=== PATIENT | male | born 1980 | race Caucasian/White ===

== ENCOUNTER 2022-10-27 09:08 | Inpatient (IN) | payer BC, SELFPAY ==
--- NOTE | ~2022-10-27 | CT_ITS ---
EXAMINATION: CT abdomen pelvis w con DATE: 10/27/2022 10:41 INDICATION: Left lower quadrant abdominal pain, testicular pain. Nausea. Diaphoresis. TECHNIQUE: Computed tomography (CT) of the abdomen and pelvis was performed with 100 CC Omnipaque 350 intravenous contrast. Automated exposure control and iterative reconstruction technique were employe d. Exam dose: 485.45 mGy-cm total exam DLP. COMPARISON: None. FINDINGS: Thin linear discoid bands in both lower lobes may be due to discoid atelectasis or scarring . No consolidation at the lung bases. No pleural or pericardial effusion. Heart size is normal. Small sliding hiatal hernia. The liver, gallbladder, bile ducts, spleen, pancreas, pancreatic duct, and adrenal glands and kidneys appear normal. Normal caliber of the abdominal aorta. No intraperitoneal or retroperitoneal or pelvic mass lesion or adenopathy or ascites. The urinary bladder is unremarkable. Mild prostate enlargement. Prostate calcifications. Normal appendix. Mild left colon diverticulosis. There is soft tissue thickening of the wall of the distal descending colon with prominent pericolic f at stranding and small focal extraluminal air collections. Approximately 9 x 15 mm intramural abscess of the distal descending colon anterior wall is suggested. No suspicious osteolytic or osteoblastic lesions. IMPRESSION: Diverticulitis of the distal descending colon with approximately 9 x 15 mm intramural ab scess and some prominent inflammatory change around the descending colon including pericolic fat soft tissue infiltration and thickening of the adjacent fascia. There are scattered small collections of focal extraluminal gas. Normal appendix Small sliding hiatal hernia Reviewed, dictated and finalized at [facility]. Reviewed, dictated and finalized at [facility]ER IMPRESSION: Diverticulitis of the distal descending colon with approximately 9 x 15 mm intramural abscess and some prominent inflammatory change around the d escending colon including pericolic fat soft tissue infiltration and thickening of the adjacent fascia. There are scattered small collections of focal extralu ean gas. Normal appendix Small sliding hiatal hernia
[2022-10-27 09:20] VITALS: BP 127/87; PULSE 92; RESP 14; TEMP 36.6; O2SAT 99
--- NOTE | 2022-10-27 09:42 | ED.ABDPAIN ---
HPI - Abdominal Pain General Chief Complaint: Abdominal Pain Stated Complaint: abd pain Time Seen by Provider: 10/27/22 09:30 History of Present Illness HPI narrative: Patient states that yesterday he started having some pain in his lower abdomen, and that today has really settled into his left lower quadrant, and with some nausea vomiting, he states that everything seemed to have started when he was having some nausea and diarrhea a day or so ago. Also endorsing some chills. No testicular pain. No pain with urination never had symptoms like this in the past. Related Data Home Medications Medication Instructions Recorded Confirmed No Home Medications 10/27/22 10/27/22 Allergies Allergy/AdvReac Type Severity Reaction Status Date / Time No Known Allergies Allergy Verified 10/27/22 10:32 Review of Systems Review of Systems: CONST: Chills HEENT: No sore throat C/V: No chest pain RESP: No cough GI: Reports abdominal pain, nausea, vomiting[, diarrhea] : No dysuria. M/S: No joint pain. SKIN: No rash. NEURO: [No headache or focal numbness or weakness] PSYCH: [No depression] [facility] Past Medical History Medical History (Updated 10/27/22 @ 18:36 by Magui Cantrell MD) No significant active problems Surgical History Surgical History (Updated 10/27/22 @ 14:44 by ZAYDA Nunez) No pertinent past surgical history Family History Family History Sibling Diverticulitis Other Diverticulitis Social History Social History Smoking status: Never smoker Alcohol intake: current Drinks per week: 2 Substance use: never Lack of Transportation: No Lack of Food: Never True Current Housing: I Have Housing Concerned About Future Housing: No Difficulty Paying Gas/Electric Bills: No Difficulty Paying for Meds: No Currently Unemployed: No Education: Master's Degree or Higher Difficulty w/ Childcare or Family Care: No Living arrangements: with family Gender identity (if verbalized by the patient): Male Spiritual care concerns: No Exam Narrative: EXAMINATION OF ORGAN SYSTEMS/BODY AREAS: Constitutional: Vital signs per nursing GENERAL:[No acute distress, non-toxic appearing.] HEAD: Normal with no signs of head trauma. EYES: EOMI, conjunctiva normal ENT: Hearing grossly intact LUNGS: Nonlabored breathing. HEART: [Regular rate and rhythm] ABD: [Soft], [tender to palpation] left lower quadrant : No testicular swelling or tenderness EXT: Normal range of motion SKIN: [No rashes or lesions.] NEURO: [Alert and oriented x 3. No gross focal sensory or strength deficits.] PSYCH: Normal affect Course Vital Signs Vital signs: Vital Signs Temperature 97.9 F 10/27/22 09:20 Pulse Rate 92 10/27/22 09:20 Respiratory Rate 14 10/27/22 09:20 Blood Pressure 127/87 10/27/22 09:20 Pulse Oximetry 99 10/27/22 09:20 Oxygen Delivery Room Air 10/27/22 09:20 Temperature 97.7 F 10/27/22 15:19 Pulse Rate 86 10/27/22 15:19 Respiratory Rate 18 10/27/22 15:19 Blood Pressure 123/82 10/27/22 15:19 Pulse Oximetry 98 10/27/22 15:19 Oxygen Delivery Room Air 10/27/22 09:20 MDM - Abdominal Pain MDM Narrative Medical decision making narrative: Electronic medical record was reviewed. Patient presented to the ED with complaint of [abdominal pain and vomiting]. Vitals [were within acceptable limits]. Physical exam revealed [tenderness to palpation in left lower quadrant]. Based on the patient's history and physical exam, my differential includes but is not limited to [gastritis, gastroenteritis, diverticulitis, kidney stone or UTI]. [IV access was established by nursing staff. Patient was given morphine, Zofran, fluids]. CBC, BMP, lipase, LFTs, bilirubin and alk phos were obtained. Labs were pertinent for elevated white count. [Decision was made to obt
[2022-10-27 09:58] LABS: Appearance Urine Clear (Clear); Bilirubin Urine Negative (Negative); Blood Urine Trace-intact (Negative); Color Urine Yellow (Yellow); Glucose Urine UA Negative (Negative); Ketones Urine Negative (Negative); Leukocyte Esterase Ur Negative LEU/UL (Negative); Nitrate Urine Negative (Negative); Protein Urine Trace mg/dL (Negative); Urobilinogen Urine 0.2 mg/dL (<2.0); pH Urine 5.5 (5.0-9.0)
[2022-10-27 10:00] LABS: Basophils Percent Auto 0.3 % (0.2-1.2); Eosinophils Absolute Auto 0.2 K/mm3 (0-0.3); Eosinophils Percent Auto 1.7 % (0-4.4); Hemoglobin 15.2 g/dL (14.0-18.0); Immature Granulocyte Absolute 0.08 K/mm3 (0.00-0.031); Immature Granulocyte Percent A 0.7 % (0-0.5); Lymphocytes Absolute Auto 2.33 K/mm3 (0.9-3.2); Lymphocytes Percent Auto 19.7 % (18.3-44.2); Mean Corpuscular HGB Conc 33.8 g/dl (32-36); Mean Corpuscular Hemoglobin 29.7 pg (26-34); Mean Corpuscular Volume 88.1 fl (80-100); Mean Platelet Volume 8.8 fl (7.4-10.4); Monocytes Absolute Auto 0.8 K/mm3 (0.1-0.6); Monocytes Percent Auto 6.6 % (2.6-8.5); Neutrophils Absolute Auto 8.4 K/mm3 (1.3-6.7); Platelet Count Result 246 k/mm3 (150-375); Red Blood Count 5.11 M/mm3 (4.6-6.20); Red Cell Distribution Width 13.3 % (11.5-14.5); White Blood Count 11.8 K/mm3 (4.5-10.0)
[2022-10-27 10:02] LABS: Mucus Urine Few /lpf; Squamous Epithelial Cell Urine Rare /hpf (Few); WBC Urine 0-3 /hpf
[2022-10-27 10:03] LABS: Add Urine Microscopic? YES
[2022-10-27] MEDS: MORPHINE SULFATE (*CRX) 4 MG/ML INJ IV PUSH ×2 (10:06→12:21)
[2022-10-27] MEDS: ONDANSETRON INJ 4 MG/2 ML VIAL IV PUSH ×2 (10:06→12:21)
[2022-10-27 10:10] LABS: Alanine Aminotransferase 37 U/L (6-50); Albumin Level 4.6 g/dL (3.5-5.1); Alkaline Phosphatase 56 U/L (38-126); Anion Gap 8 mmol/L (8-16); Aspartate Amino Transferase 22 U/L (17-59); Blood Urea Nitrogen 15 mg/dL (9-20); Calcium 9.1 mg/dL (8.4-10.2); Carbon Dioxide 28 mmol/L (22-30); Chloride 102 mmol/L (98-107); Estimated CRCL calculation 80 ml/min; Estimated Glomerular Filt Rate > 60; Glucose 103 mg/dL (65-110); Potassium 4.2 mmol/L (3.4-5.0); Sodium 138 mmol/L (137-145)
[2022-10-27 12:25] LABS: Influenza A QL RT-PCR Negative (Negative); Influenza B QL RT-PCR Negative (Negative); RSV RNA, RT-PCR Negative (Negative); SARS-CoV-2 RNA PCR Positive
[2022-10-27 13:30] VITALS: BP 151/98; PULSE 94; RESP 18; O2SAT 99
--- NOTE | 2022-10-27 14:13 | PM.IMHP ---
H&P: HPI History of Present Illness Date/Time: 10/27/22 14:13 Chief Complaint: LLQ abdominal pain Narrative: This is a 42 year old man who is otherwise health that presented to the ER today with complaints of left-sided abdominal pain x 1 day. He reports noticing some LLQ and left mid abdominal pain yesterday throughout the day. He had associated chills and nausea yesterday, but no fever or vomiting. He reports moving his bowels and noticing his stool was loose, and then felt his pain began to worsen after his BM. His abdominal pain began radiating down to his left hemiscrotum. The pain persisted and he decided to go to the urgent care today. They referred him to the ER for further evaluation. Labs were significant for a WBC 11.8. CT scan of the abdomen pelvis showed diverticulitis of the distal descending colon with a 1.5 cm intramural abscess and some inflammatory change around the descending colon with some scattered small collections of focal extraluminal gas. Our service was contacted by the ED physician for surgical evaluation of the diverticulitis with perforation and abscess. He is now seen in the ER with his at the bedside. He had pre-admission testing just for screening of influenza, RSV, and COVID, and his COVID test resulted positive. With further questioning, he admits his was positive about 6 weeks ago. He developed mild congestion and sore throat on 10/22/22, 6 days ago. His symptoms have completely resolved. He reports being vaccinated and up to date with his booster. The patient reports having relief with his abdominal pain mostly after the IV Tylenol. He denies any nausea at this time. He does report some bloating and thirst. No previous abdominal surgeries. Denies a history of diverticulitis in the past. Denies ever having a colonoscopy. Review of Systems Review of Systems: All systems reviewed & are unremarkable except as noted in HPI and below Constitutional: Constitutional: Reports no additional constitutional complaints, Reports chills, Denies fatigue, Denies fever(s), Denies poor appetite and Denies weakness Eyes: Eyes: Reports no additional eye complaints ENT: Reports system reviewed and no additional complaints, except as documented and Denies dizziness Cardiovascular: Cardiovascular: Reports no additional cardiovascular complaints, Denies chest pain and Denies leg edema Respiratory: Respiratory: Reports no additional respiratory complaints, Denies cough and Denies dyspnea Gastrointestinal: Gastrointestinal: Reports as per HPI, Reports no additional gastrointestinal complaints, Reports abdominal pain, Denies melena, Reports bloating, Denies hematochezia, Denies change in bowel habits, Denies constipation, Reports loose stools, Reports nausea and Denies vomiting Genitourinary: Genitourinary: Reports no additional male genitourinary complaints and Denies dysuria Musculoskeletal: Musculoskeletal: Reports no additional musculoskeletal complaints, Denies abnormal gait and Denies joint swelling Integumentary/Breasts: Skin/Breast: Reports system reviewed and no additional complaints, except as docu Neurologic: Reports system reviewed and no additional complaints, except as documented, Denies headache(s), Denies focal weakness, Denies numbness and Denies tingling PMFSH Past Medical History Medical History No significant active problems Surgical History Surgical History (Updated 10/27/22 @ 14:44 by ZAYDA Nunez) No pertinent past surgical history Family History Family History Sibling Diverticulitis Other Diverticulitis Social History Social History Smoking status: Never smoker Substance use: never Gender identity (if verbalized by the patient): Male Meds Home Medications and Allergies Home Medications Medication In
[2022-10-27 15:19] VITALS: BP 123/82; PULSE 86; RESP 18; TEMP 36.5; O2SAT 98
[2022-10-27] MEDS: LACTATED RINGERS 1,000 ML 125 ML IV CONT (15:20)
[2022-10-27] MEDS: FAMOTIDINE 20 MG/2 ML VIAL IV PUSH (20:17)
[2022-10-27 21:43] VITALS: BP 124/89; PULSE 85; RESP 14; TEMP 36.3; O2SAT 100
[2022-10-28] MEDS: LACTATED RINGERS 1,000 ML 125 ML IV CONT ×2 (01:04→08:50)
[2022-10-28 05:30] VITALS: BP 131/86; PULSE 78; RESP 14; TEMP 36.4; O2SAT 98
[2022-10-28 06:49] LABS: Hematocrit 40.7 % (42.0-52.0); Hemoglobin 13.6 g/dL (14.0-18.0); Mean Corpuscular HGB Conc 33.4 g/dl (32-36); Mean Corpuscular Hemoglobin 29.8 pg (26-34); Mean Corpuscular Volume 89.3 fl (80-100); Mean Platelet Volume 8.8 fl (7.4-10.4); Platelet Count Result 198 k/mm3 (150-375); Red Blood Count 4.56 M/mm3 (4.6-6.20); Red Cell Distribution Width 13.1 % (11.5-14.5); White Blood Count 10.7 K/mm3 (4.5-10.0)
[2022-10-28 06:59] LABS: Anion Gap 5 mmol/L (8-16); Blood Urea Nitrogen 13 mg/dL (9-20); Calcium 8.3 mg/dL (8.4-10.2); Carbon Dioxide 29 mmol/L (22-30); Chloride 99 mmol/L (98-107); Estimated CRCL calculation 80 ml/min; Estimated Glomerular Filt Rate > 60; Glucose 93 mg/dL (65-110); Sodium 133 mmol/L (137-145)
[2022-10-28] MEDS: FAMOTIDINE 20 MG/2 ML VIAL IV PUSH (08:50)
--- NOTE | 2022-10-28 10:41 | PM.PNGS ---
Progress Note: A&P Assessment and Plan (1) Diverticulitis of intestine with perforation and abscess: Code(s): K57.80 - Diverticulitis of intestine, part unspecified, with perforation and abscess without bleeding Status: Acute Assessment and Plan: Improving. Will start clear liquids. Continue IV Zosyn. Continue serial exam labs and other assessment. (2) COVID-19: Code(s): U07.1 - COVID-19 Status: Acute Assessment and Plan: No symptoms. Continue on isolation. Subjective Subjective Date/Time Seen: 10/28/22 10:41 Patient reports: feels better, pain is less, no flatus, no bowel movement and afebrile Review of Systems Review of Systems: All systems reviewed & are unremarkable except as noted in HPI and below (HPI and those items noted below) Constitutional: Constitutional: Denies chills and Denies fever(s) Cardiovascular: Cardiovascular: Denies chest pain, Denies diaphoresis, Denies dyspnea and Denies paroxysmal nocturnal dyspnea Respiratory: Respiratory: Denies chest congestion, Denies cough and Denies dyspnea Integumentary/Breasts: Skin/Breast: Denies lesions and Denies rash Exam Const: General: comfortable and no acute distress; No confusion Orientation/consciousness: patient oriented x3 and No confusion GI: Inspection: normal to inspection and non-distended GI Palp: Yes Firmness to palpation present (GI), Yes Tenderness to palpation present (GI) (Less than yesterday, mostly left lower quadrant) and Yes Guarding due to palpation present (GI) Auscultation: Hypoactive bowel sounds present Neuro: General: patient oriented x3, no focal motor deficits and No confusion Extrem: General: no calf tenderness and no edema Psych: Affect: normal affect Insight: Good insight present (Psych) Judgement: Good judgement present (Psych) Objective Data Vital Signs Vital Signs: Vital Signs - 24 hr 10/27/22 13:30 10/27/22 15:19 10/27/22 21:43 Temperature 36.5 C 36.3 C L Pulse Rate 94 86 85 Respiratory Rate 18 18 14 Blood Pressure 151/98 H 123/82 124/89 Pulse Oximetry 99 98 100 Oxygen Delivery 10/28/22 05:30 10/28/22 08:00 Temperature 36.4 C L Pulse Rate 78 Respiratory Rate 14 Blood Pressure 131/86 Pulse Oximetry 98 Oxygen Delivery Room Air Intake/Output Intake/Output: Intake & Output 10/25/22 10/26/22 10/27/22 10/28/22 23:59 23:59 23:59 23:59 Intake Total 1300 1200 Balance 1300 1200 Meds/Results Medications: Active Medications Generic Name Dose Route Start Last Admin Trade Name Freq PRN Reason Stop Dose Admin Acetaminophen 500 mg 10/28/22 10:37 Acetaminophen 500 Mg Tablet PO Q6H PRN Mild Pain (1-3) or Fever Hydrocodone Bitart/Acetaminophen 1 tab 10/28/22 10:37 Hydrocodone/Acetaminophen (*Crx) 5-325 Mg Tablet PO Q4H PRN Pain Rated 4-6 Hydrocodone Bitart/Acetaminophen 1 tab 10/28/22 10:37 Hydrocodone/Acetaminophen (*Crx) 10-325 Mg Tablet PO Q4H PRN Pain Rated 7-10 Famotidine 20 mg 10/27/22 21:00 10/28/22 08:50 Famotidine 20 Mg/2 Ml Vial IV PUSH 20 mg Q12HR LUIS Administration Famotidine 20 mg 10/28/22 21:00 Famotidine 20 Mg Tablet PO Q12HR LUIS Acetaminophen 1,000 mg in 100 mls @ 400 mls/hr 10/27/22 11:24 10/28/22 06:19 Ofirmev 1,000 Mg Ivpb IVPB 10/28/22 11:23 Infused Q6H PRN Infusion Mild Pain (1-3) or Fever Lactated Ringer's 1,000 mls @ 80 mls/hr 10/27/22 11:25 10/28/22 08:50 Lr - Lactated Ringers Iv IV CONT 125 mls/hr .[id number] LUIS Administration Piperacillin/Tazobactam/Dextrose 3.375 gm in 50 mls @ 100 mls/hr 10/27/22 18:00 10/28/22 06:33 Zosyn 3.375 Gm/D5w 50ml Pm IVPB Infused Q6H LUIS Infusion Ketorolac Tromethamine 30 mg 10/28/22 10:37 Ketorolac 30 Mg/Ml Vial (*Bkc) IV PUSH 11/02/22 10:36 Q6H PRN Headache Morphine Sulfate 4 mg 10/27/22 14:20 Morphine Sulfate (*Crx) 4 Mg/Ml Inj IV PUSH Q2H PRN
[2022-10-28 10:45] VITALS: O2SAT 100
[2022-10-28 14:00] VITALS: BP 134/85; PULSE 91; RESP 20; TEMP 37; O2SAT 99
[2022-10-28] MEDS: LACTATED RINGERS 1,000 ML 80 ML IV CONT (21:18)
[2022-10-28] MEDS: FAMOTIDINE 20 MG TABLET PO (21:18)
[2022-10-28 22:00] VITALS: BP 140/88; PULSE 95; RESP 18; TEMP 36.9; O2SAT 99
[2022-10-29 06:00] VITALS: BP 122/83; PULSE 73; RESP 16; TEMP 36.5; O2SAT 99
[2022-10-29] MEDS: ACETAMINOPHEN 500 MG TABLET PO (06:24)
[2022-10-29 06:55] LABS: Hematocrit 40.8 % (42.0-52.0); Hemoglobin 13.8 g/dL (14.0-18.0); Mean Corpuscular HGB Conc 33.8 g/dl (32-36); Mean Corpuscular Hemoglobin 29.8 pg (26-34); Mean Corpuscular Volume 88.1 fl (80-100); Mean Platelet Volume 9.1 fl (7.4-10.4); Platelet Count Result 235 k/mm3 (150-375); Red Blood Count 4.63 M/mm3 (4.6-6.20); Red Cell Distribution Width 13.1 % (11.5-14.5); White Blood Count 9.2 K/mm3 (4.5-10.0)
[2022-10-29 07:10] LABS: Anion Gap 7 mmol/L (8-16); Blood Urea Nitrogen 8 mg/dL (9-20); Calcium 8.2 mg/dL (8.4-10.2); Carbon Dioxide 29 mmol/L (22-30); Chloride 101 mmol/L (98-107); Estimated CRCL calculation 80 ml/min; Estimated Glomerular Filt Rate > 60; Glucose 93 mg/dL (65-110); Potassium 3.7 mmol/L (3.4-5.0); Sodium 137 mmol/L (137-145)
--- NOTE | 2022-10-29 09:29 | PM.DS ---
DS: Admitting Diagnosis Discharge Date 10/29/2022 Admitting Diagnosis Diverticulitis with abscess COVID-19 DS: Discharge Diagnosis Discharge Diagnosis (1) Diverticulitis of intestine with perforation and abscess: Code(s): K57.80 - Diverticulitis of intestine, part unspecified, with perforation and abscess without bleeding Status: Acute (2) COVID-19: Code(s): U07.1 - COVID-19 Status: Acute DS: Summary Hospital Course Hospital Course: Patient admitted on 10/27/2021 with severe abdominal pain mostly in the left lower quadrant. He had leukocytosis, tenderness and guarding. CT scan showed acute diverticulitis with a small abscess. Patient also reported that he had had a cold about 6 days before the onset of his present illness. His cold was better 3 days before he came to the emergency room. He was tested in the emergency room and was COVID positive although he was asymptomatic at the time and remained asymptomatic throughout the course of his hospital stay. He was treated with bowel rest and IV antibiotics. He improved steadily during his admission and was able to be started on clear liquids on hospital day 1. By hospital day 2., his white blood cell count was normal. He remained afebrile, and his abdominal pain was completely gone. He had a normal bowel movement. He was ambulating without difficulty and eating without problems. He is discharged at this time on oral antibiotics and low-fiber diet. He was advised also to take COVID precautions for another 3 days. Status at Discharge Functional status at discharge: independent ambulation Overall status at discharge: patient is progressing back to baseline Time Spent with Patient Time attestation: Total time spent providing and/or coordinating discharge services: Time spent: Less than 30 minutes DS: Data Data Completed and Pending Labs on day of discharge: Labs from last 24 hours 10/29/22 10/29/22 05:45 05:45 WBC 9.2 RBC 4.63 Hgb 13.8 L Hct 40.8 L MCV 88.1 MCH 29.8 MCHC 33.8 RDW 13.1 Plt Count 235 MPV 9.1 Sodium 137 Potassium 3.7 Chloride 101 Carbon Dioxide 29 Anion Gap 7 L BUN 8 L D Creatinine 1.10 Estim Creat Clear Calc 80 Estimated GFR > 60 Glucose 93 Calcium 8.2 L Discharge Plan Discharge Attending physician on discharge: Chucho Mario Discharging Clinician: Chucho Mario Anticipated Discharge Date/Time: 10/29/22 09:34 Patient Disposition: Home, Self-Care Activity: may shower and as tolerated Diet: low fiber Discharge Instructions: Activity as tolerated. Okay to drive a car. Expect some fatigue and lack of energy. Stay on low-fiber diet until see Dr. Mario in the office in 2 weeks. Call if abdominal pain, fever, vomiting develop or go to the emergency room. Patient Instructions: Antibiotic Form, COVID-19 (Coronavirus Disease 2019) (DC) Stand Alone Forms: General Discharge Information Follow-up/Referrals: Chucho Mario MD [Physician] - 2 Weeks Discharge Medications: New amoxicillin-pot clavulanate 875-125 mg tablet 1 tablet PO Q12H Qty: 14 0RF Continued No Home Medications Date of admission: 10/27/22 11:24 Primary Care Provider: PHYSICIAN NOT ON STAFF,NONSTAFF Admitting Provider: Chucho Mario Attending physician on admission: Chucho Mario Condition: Improved
== END 2022-10-29 10:35 | disposition home or self-care (01) | DRG 391 ==
LOC: ANHED 09:58 → ANH3MEDSUR 13:27
PROVIDERS: Nurse Practitioner Family; Admitting Provider Surgery; Emergency Provider Emergency Medicine; Visit Provider Surgery
DX: K57.20 Diverticulitis of large intestine with perforation and abscess without bleeding (principal); U07.1 COVID-19
CPT/HCPCS: 36415; 74177; 80048; 80053; 81001; 85025; 85027; 87637; 96374; 96375; 99285; A9270; J0131; J2270; J2405; J2543; J7120; Q9967